=== PATIENT | female | born 1980 ===

== ENCOUNTER 2016-05-16 10:46 | Emergency (ER) | payer BC, MEDICAID ==
[2016-05-16 11:20] VITALS: BP 112/74
--- NOTE | 2016-05-16 12:21 | UC ---
General HPI - HPI Summary HPI Summary: 36 y/o female c/o dry cough which is worse at night x 3-4 weeks. Patient is 10 weeks , states her throat "feels irritated" r/t coughing. Reports an increased temperature the first few days of symptoms, which has since resolved. - History of Current Complaint Chief Complaint: UCRespiratory Stated Complaint: COUGHING () Time Seen by Provider: 05/16/16 11:59 Hx Obtained From: Patient, Family/Setter [employer]ating Equipment Onset/Duration: Gradual Onset Timing: Intermittent Episodes Lasting: Onset Severity: Moderate Current Severity: Mild Associated Signs & Symptoms: Positive: Cough. Negative: Hemoptysis - Allergy/Home Medications Allergies/Adverse Reactions: Allergies Allergy/AdvReac Type Severity Reaction Status Date / Time No Known Allergies Allergy Verified 05/16/16 11:21 Home Medications: Home Medications Multivit-Min W/Fe-FA [ and Iron] 1 tab PO 05/16/16 [History] PMH/Surg Hx/FS Hx/Imm Hx Previously Healthy: Yes Endocrine History Of: Denies: Diabetes, Thyroid Disease, Hyperthyroidism, Hypothyroidism, Dyslipidemia Cardiovascular History Of: Denies: Cardiac Disorders, Hypertension, Pacemaker/ICD, Myocardial Infarction , Congestive Heart Failure, Atrial Fibrillation, Deep Vein Thrombosis, Bleeding Disorders Respiratory History Of: Denies: COPD, Asthma, Bronchitis, Pneumonia, Pulmonary Embolism GI/ History Of: Denies: Gastroesophageal Reflux, Ulcer, Gastrointestinal Bleed, Gall Bladder Disease, Kidney Stones, Diverticulitis, Renal Disease, Urosepsis Neurological History Of: Denies: TIA, CVA, Dementia, Seizures, Migraine Psychological History Of: Denies: Anxiety, Depression, Bipolar Disorder, Schizophrenia, Post Traumatic Stress Disorder - Surgical History Surgical History: None - Family History Known Family History: Positive: None - Social History Occupation: Employed Full-time Lives: With Family Alcohol Use: None Substance Use Type: None Smoking Status (MU): Never Smoked Tobacco Have You Smoked in the Last Year: No Review of Systems Skin: Negative Eyes: Negative ENT: Nasal Discharge Respiratory: Cough - dry nonproductive cough Cardiovascular: Negative Gastrointestinal: Negative Genitourinary: Negative Motor: Negative Neurovascular: Negative Musculoskeletal: Negative Neurological: Negative Psychological: Negative All Other Systems Reviewed And Are Negative: Yes Physical Exam Triage Information Reviewed: Yes Appearance: No Pain Distress Vital Signs: Initial Vital Signs Temp 98.2 F 05/16/16 11:15 Pulse 107 05/16/16 11:15 Resp 20 05/16/16 11:15 BP 112/74 05/16/16 11:15 Pulse Ox 100 05/16/16 11:15 Vital Signs Reviewed: Yes Eye Exam: Normal Eyes: Positive: Conjunctiva Clear ENT Exam: Normal ENT: Positive: Hearing grossly normal, Pharynx normal, Nasal congestion, TMs normal Dental Exam: Normal Neck exam: Normal Neck: Positive: Supple, Nontender, No Lymphadenopathy Respiratory Exam: Normal Respiratory: Positive: Chest non-tender, Lungs clear, Normal breath sounds, No respiratory distress, No accessory muscle use. Negative: Decreased breath sounds, Accessory muscle use Cardiovascular Exam: Normal Cardiovascular: Positive: RRR, No Murmur, Pulses Normal Abdominal Exam: Normal Abdomen Description: Positive: Nontender, No Organomegaly Bowel Sounds: Positive: Present Musculoskeletal Exam: Normal Musculoskeletal: Positive: Strength Intact, ROM Intact Neurological: Positive: Alert, Muscle Tone Normal Psychological Exam: Normal Skin Exam: Normal Course/Dx - Differential Dx - Multi-Symptom Provider Diagnoses: Bronchitis in . Post-viral cough Discharge - Discharge Plan Condition: Stable Disposition: HOME Prescriptions: Albuterol HFA INHALER* [Ventolin HFA Inhaler*] 1 - 2 puff INH Q4H PRN #1 mdi PRN Reason: wheeze, cough Patient Education Materials: Acute Bronchitis (ED) Referrals: Radha Amaro MD [Primary Care Provider] - If Needed Additional Instructions: As discussed, incorporate warm water and lemon into your diet. Take a dose of Delsym before bedtime the next few days. Use inhaler as needed. Drink more than 6-10 glasses of water daily, place a humidifier in the bedroom at night. If symptoms worsen see Primary care provider or return.
== END 2016-05-16 12:48 | disposition home or self-care (01) ==
LOC: UCEAST 10:46
DX: O26.891 Other specified pregnancy related conditions, first trimester (principal); Z3A.10 10 weeks gestation of pregnancy
CPT/HCPCS: 87502; 99202; G0463

== ENCOUNTER 2016-12-11 09:05 | Inpatient (IN) | payer BC, MEDICAID ==
[2016-12-11] MEDS ORDERED: Dinoprostone* 10 MG VAG.SUPP VAGINAL ONE (09:31)
[2016-12-11] MEDS ORDERED: Oxytocin in LR* 20 UNITS/1,000 ML BAG IVPB SCH (23:00)
[2016-12-12] MEDS ORDERED: OBEPIDURAL* 250 ML ONE (01:07)
[2016-12-12] MEDS ORDERED: fentaNYL* 50 MCG/ML 2 ML VIAL (100 MCG VIAL) ONE (01:07)
[2016-12-12 01:20] LABS: Hematocrit 40 % (35-47); Hemoglobin 13.3 g/dl (12.0-16.0); Mean Corpuscular HGB Conc 34 g/dl (31-36); Mean Corpuscular Hemoglobin 27 pg (27-31); Mean Corpuscular Volume 81 fL (80-97); Mean Platelet Volume 9 um3 (7.4-10.4); Red Blood Count 4.91 10^6/ul (4.0-5.4); Red Cell Distribution Width 16 % (10.5-15); White Blood Count 13.7 10^3/ul (3.5-10.8)
[2016-12-12] MEDS ORDERED: Famotidine TAB* 20 MG PO PRN (02:34)
[2016-12-12] MEDS ORDERED: Sodium Citrate/Citric Acid* 15 ML UDC PO PRN (02:34)
[2016-12-12] MEDS ORDERED: Phenylephrine IV* 40 MCG/ML 10 ML SYRINGE IV PUSH PRN ×2 (02:34)
[2016-12-12] MEDS ORDERED: OBEPIDURAL* 250 ML EPIDURAL SCH (03:00)
[2016-12-12] MEDS ORDERED: Glycerin ADULT SUPP PR PRN (11:52)
[2016-12-12] MEDS ORDERED: Acetaminophen TAB* 325 MG PO PRN (11:52)
[2016-12-12] MEDS ORDERED: Witch Hazel PAD* JAR TOPICAL PRN (11:52)
[2016-12-12] MEDS ORDERED: Dibucaine 1% 28.35 GM TUBE PR PRN (11:52)
[2016-12-12] MEDS ORDERED: Oxytocin in LR* 20 UNITS/1,000 ML BAG IVPB SCH (12:00)
[2016-12-12] MEDS ORDERED: Simethicone TAB* 80 MG TAB.CHEW PO SCH (12:30)
[2016-12-12] MEDS: Docusate CAP* 100 MG PO SCH ×2 (14:00→20:49)
[2016-12-12] MEDS: Ibuprofen TAB* 600 MG PO PRN (19:26)
[2016-12-13] MEDS: Ibuprofen TAB* 600 MG PO PRN ×3 (03:56→20:06)
[2016-12-13] MEDS: Docusate CAP* 100 MG PO SCH ×3 (09:23→20:56)
[2016-12-13] MEDS: Ferrous Gluconate TAB* 324 MG TAB PO SCH ×2 (09:24→22:02)
[2016-12-13 10:03] LABS: Hematocrit 36 % (35-47); Hemoglobin 11.9 g/dl (12.0-16.0); Mean Corpuscular HGB Conc 33 g/dl (31-36); Mean Corpuscular Hemoglobin 27 pg (27-31); Mean Corpuscular Volume 82 fL (80-97); Mean Platelet Volume 9 um3 (7.4-10.4); Red Blood Count 4.41 10^6/ul (4.0-5.4); Red Cell Distribution Width 16 % (10.5-15); White Blood Count 20.3 10^3/ul (3.5-10.8)
[2016-12-13] MEDS: GuaiFENesin DM sugar free* 5 ML UDC PO PRN (17:44)
[2016-12-14] MEDS: GuaiFENesin DM sugar free* 5 ML UDC PO PRN ×4 (05:52→21:09)
[2016-12-14] MEDS: Ibuprofen TAB* 600 MG PO PRN ×3 (06:06→21:09)
[2016-12-14] MEDS: Docusate CAP* 100 MG PO SCH ×3 (09:31→21:10)
[2016-12-14 20:06] VITALS: BP 131/80
== END 2016-12-14 21:20 | DRG 560 ==
LOC: MCHOBOUT 09:05 → MCHOB 09:29
PROVIDERS: ADMIT Obstetrics & Gynecology; ATTEND Obstetrics & Gynecology
PROC: 3E033VJ Introduction of Other Hormone into Peripheral Vein, Percutaneous Approach (ICD-10-PCS; principal; 2016-12-11)
PROC: 10E0XZZ Delivery of Products of Conception, External Approach (ICD-10-PCS; 2016-12-11)
PROC: 0KQM0ZZ Repair Perineum Muscle, Open Approach (ICD-10-PCS; 2016-12-11)
PROC: 4A1HX4Z Monitoring of Products of Conception, Cardiac Electrical Activity, External Approach (ICD-10-PCS; 2016-12-11)
PROC: 3E0P7GC Introduction of Other Therapeutic Substance into Female Reproductive, Via Natural or Artificial Opening (ICD-10-PCS; 2016-12-11)
DX: O24.429 Gestational diabetes mellitus in childbirth, unspecified control (principal); O99.824 Streptococcus B carrier state complicating childbirth; O43.123 Velamentous insertion of umbilical cord, third trimester; Z3A.39 39 weeks gestation of pregnancy; Z37.0 Single live birth; O76 Abnormality in fetal heart rate and rhythm complicating labor and delivery; O70.1 Second degree perineal laceration during delivery
CPT/HCPCS: 36415; 76815; 82947; 85025; 86850; 86900; 86901; A9270-GY; J2540; J3010

== ENCOUNTER 2017-01-09 12:24 | Emergency (ER) | payer BC, MEDICAID ==
[2017-01-09 12:37] VITALS: BP 123/71
--- NOTE | 2017-01-09 13:26 | UC ---
Abdominal Pain Female HPI - HPI Summary HPI Summary: Patient presents 28 days with vaginal delivery, with episitomy. She is G2,P2,A0. Delivered by Dr. Ny. She was seen in the office last Anton to have her stitches removed. Patient states she did receive an epidural. She states she has been recovering uneventfully until one week ago when she had increased vaginal bleeding of bright red blood, and clots. She states she was using 2-3 pads daily, and as of the last week she is using 7-8 pads daily. she denies feeling lightheaded, dizzy, or weak. She also complaints of urethral pain with urination. She also complains of thoracic back pain, that is worse when she is breast-feeding. She denies any fever, chills, chest pain, or dyspnea, cough associated with her symptoms. - History of Current Complaint Chief Complaint: UCAbdominalPain Stated Complaint: ABDOMINAL PAIN/UTI Time Seen by Provider: 01/09/17 12:42 Hx Obtained From: Patient Hx Last Menstrual Period: post pardum 28 days. ?: No Onset/Duration: Gradual Onset, Lasting Weeks Timing: Constant Severity Initially: Mild Severity Currently: Moderate Location: Suprapubic Radiates: Yes Radiates to: Back Character: Aching Aggravating Factor(s): Movement Alleviating Factor(s): Spontaneous Resolution Associated Signs and Symptoms: Positive: Back Pain, Vaginal Bleeding - Risk Factors Ectopic Risk Factor: Negative Ovarian Torsion Risk Factor: Reproductive Age Allergies/Adverse Reactions: Allergies Allergy/AdvReac Type Severity Reaction Status Date / Time No Known Allergies Allergy Verified 01/09/17 12:37 Home Medications: Home Medications Docusate Sodium [Colace] 1 tab PO BID PRN 01/09/17 [History Confirmed 01/09/17] PMH/Surg Hx/FS Hx/Imm Hx Previously Healthy: Yes - Surgical History Surgical History: None - Family History Known Family History: Positive: None - Social History Occupation: Works From/At Home Lives: With Family Alcohol Use: None Substance Use Type: None Smoking Status (MU): Never Smoked Tobacco Have You Smoked in the Last Year: No - Immunization History Most Recent Influenza Vaccination: Not UTD Most Recent Pneumonia Vaccination: none Review of Systems Constitutional: Negative Skin: Negative Eyes: Negative ENT: Negative Respiratory: Negative Cardiovascular: Negative Gastrointestinal: Abdominal Pain Genitourinary: Dysuria Motor: Negative Neurovascular: Negative Musculoskeletal: Negative, Other: - thoracic back pain Neurological: Negative Psychological: Negative All Other Systems Reviewed And Are Negative: Yes Physical Exam Triage Information Reviewed: Yes Appearance: Well-Appearing Vital Signs: Initial Vital Signs Temp 98.6 F 01/09/17 12:28 Pulse 96 01/09/17 12:28 Resp 18 01/09/17 12:28 BP 123/71 01/09/17 12:28 Pulse Ox 99 01/09/17 12:28 Vital Signs Reviewed: Yes Eye Exam: Normal ENT Exam: Normal Neck exam: Normal Neck: Positive: 1 Respiratory Exam: Normal Cardiovascular Exam: Normal Abdominal Exam: Normal Musculoskeletal Exam: Normal Neurological Exam: Normal Psychological Exam: Normal Skin Exam: Normal Abd Pain Female Course/Dx - Course Course Of Treatment: Patient presents 28 days with complaints of dysuria, a UA was obtained and positive for hematuria. She has had increased postpartrum bleedings a transvaginal US was obtained and read by the radiologist as two uterine fibroids, no evidence of retained products of conception,or endometritis. She also has had some reproducible thoracic back pain, a chest xray was obtained and read by radiologist as negative. I contacted Dr. Ny's office and arranged for follow up tomorrow at 3:30 p.m, patient declined pelvic today, and prefers to be re-checked tomorrow by her OB[facility] physician. I do not suspect PE as the patient is not tachycardic, or hypoxic. All of the test results were discussed with the patient, all questions were answered to the best of my ability and she was discharged in stable condition. - Differential Dx/Diagnosis Differential Diagnosis: Other - abdominal pain uterine fibroids vaginal bleeding hematuria dysuria Provider Diagnoses: abdominal pain. uterine fibroids. vaginal bleeding. dysuria. hematuria Discharge - Discharge Plan Condition: Stable Disposition: HOME Patient Education Materials: Abdominal Pain (ED), Bleeding (ED), Hematuria (ED), Uterine Fibroids (ED) Referrals: Radha Amaro MD [Primary Care Provider] - Additional Instructions: I made an appointment for you to see Dr. Ny tomorrow at 3:30 p.m. if you cannot make this appointment please call the office and reschedule.
--- NOTE | 2017-01-09 13:44 | RAD ---
Indication: 28 days . Heavy vaginal bleeding for 6 days. Comparison: No relevant prior exams available on the [facility] [place]. Technique: Transvaginal pelvic ultrasound. Report: 10.4 x 4.9 x 7.6 cm anteverted uterus is remarkable for 2 posterior subserosal fibroids measuring up to 1.3 x 0.7 x 1.5 and 2.1 x 1.1 x 1.9 cm. 3.7 mm endometrium with trace fluid in the endometrial cavity and endocervical canal. Negative for vascular flow on Doppler within the endometrial cavity. Negative for free pelvic fluid. Unremarkable 3.5 x 1.8 x 2.1 cm RIGHT ovary with documented vascular flow. Unremarkable 3.4 x 1.5 x 1.5 cm LEFT ovary with documented vascular flow. No visualized extra ovarian adnexal region lesions. IMPRESSION: 1. No evidence for retained products of conception. Trace fluid in the endometrial cavity and endocervical canal. 2. Small subserosal posterior uterine fibroids. 3. Unremarkable ovaries and adnexal regions.
--- NOTE | 2017-01-09 13:53 | RAD ---
INDICATION: Thoracic back pain for 3 weeks . COMPARISON: No relevant prior exams available on the [facility] [facility] for comparison. TECHNIQUE: Dual energy PA and routine lateral views of the chest were obtained. REPORT: Clear lungs and pleural spaces. Negative for pneumothorax. The heart, pulmonary vasculature, and mediastinal contours are unremarkable. Unremarkable osseous structures and soft tissue contours. IMPRESSION: Negative exam.
== END 2017-01-09 13:58 | disposition home or self-care (01) ==
LOC: UCEAST 12:24
DX: D25.9 Leiomyoma of uterus, unspecified (principal); R30.0 Dysuria; R31.9 Hematuria, unspecified
CPT/HCPCS: 71020; 76830; 81003; 99211; G0463